=== PATIENT | male | born 1935 | race Caucasian/White ===

== ENCOUNTER 2022-04-14 11:07 | Emergency (ER) | payer MEDICARE, OTHER ==
[~2022-04-14] VITALS: Ht 170.2 cm; Wt 77.7 kg
[2022-04-14 11:44] VITALS: BP 148/90
== END 2022-04-14 19:46 | disposition left against medical advice (07) ==
LOC: ER 11:07
DX: E16.2 Hypoglycemia, unspecified (principal); Z53.21 Procedure and treatment not carried out due to patient leaving prior to being seen by health care provider
CPT/HCPCS: 82948